=== PATIENT | female | born 1950 | race Caucasian/White ===

== ENCOUNTER → 2018-02-09 | Outpatient (CLI) | payer MEDICARE | END | disposition home or self-care (01) | LOC: CFH 13:37 | PROVIDERS: ATTEND Nurse Practitioner Women's Health | DX: Z12.31 Encounter for screening mammogram for malignant neoplasm of breast (principal) | CPT/HCPCS: 77067 ==

== ENCOUNTER → 2019-02-21 | Outpatient (CLI) | payer MEDICARE | END | disposition home or self-care (01) | LOC: CFH 13:29 | PROVIDERS: ATTEND Nurse Practitioner Women's Health | DX: Z12.31 Encounter for screening mammogram for malignant neoplasm of breast (principal); N64.89 Other specified disorders of breast; Z96.89 Presence of other specified functional implants | CPT/HCPCS: 77067 ==

== ENCOUNTER → 2020-03-28 | Outpatient (CLI) | payer MEDICARE | END | disposition home or self-care (01) | LOC: CFH 12:03 | PROVIDERS: ATTEND Nurse Practitioner Women's Health | DX: Z12.31 Encounter for screening mammogram for malignant neoplasm of breast (principal) | CPT/HCPCS: 77067 ==

== ENCOUNTER 2020-05-11 10:44 | Day surgery (SDC) | payer MEDICARE ==
[~2020-05-11] VITALS: Ht 170.2 cm; Wt 68.2 kg
[2020-05-11] MEDS ORDERED: LIDOCAINE 2%, 20ML SQ PRN (11:00)
[2020-05-11] MEDS ORDERED: LIDOCAINE 2%, 20ML ONE (11:11)
== END 2020-05-11 12:00 | disposition home or self-care (01) ==
LOC: CACL 10:44
PROVIDERS: ATTEND Internal Medicine Cardiovascular Disease
DX: R55 Syncope and collapse (principal); I10 Essential (primary) hypertension; E78.5 Hyperlipidemia, unspecified; I25.10 Atherosclerotic heart disease of native coronary artery without angina pectoris; E78.00 Pure hypercholesterolemia, unspecified; I47.1 Supraventricular tachycardia; Z88.8 Allergy status to other drugs, medicaments and biological substances; Z79.899 Other long term (current) drug therapy
CPT/HCPCS: 33285; C1764

== ENCOUNTER → 2020-05-17 | Outpatient (CLI) | payer MEDICARE | END | disposition home or self-care (01) | LOC: CVU 12:34 | PROVIDERS: ATTEND Internal Medicine Cardiovascular Disease | DX: I65.21 Occlusion and stenosis of right carotid artery (principal); I25.10 Atherosclerotic heart disease of native coronary artery without angina pectoris; R55 Syncope and collapse | CPT/HCPCS: 93306; 93356; 93880 ==

== ENCOUNTER 2020-08-23 11:08 | Observation (INO) | payer MEDICARE ==
[~2020-08-23] VITALS: Ht 170.2 cm; Wt 70.0 kg
[2020-08-23] MEDS ORDERED: CEFAZOLIN PMX 1GM/50ML 50 ML IVPB ONE (12:00)
[2020-08-23] MEDS: SODIUM CHLORIDE 0.9% 1,000 ML IV SCH ×2 (12:00→19:36)
[2020-08-23 12:28] LABS: BASOPHILS % (AUTO) 1 % (0-1); EOSINOPHILS % (AUTO) 1 % (1-7); LYMPHOCYTES % (AUTO) 24 % (22-44); MEAN CORPUSCULAR HEMOGLOBIN 30.7 pg (27.0-34.8); MEAN CORPUSCULAR HGB CONC 33.9 g/dL (32.4-35.8); MEAN PLATELET VOLUME 7.8 fL (7.4-10.4); MONOCYTES % (AUTO) 8 % (2-9); NEUTROPHILS % (AUTO) 68 % (42-75); PLATELET COUNT 235 x10^3/uL (130-400); RED BLOOD COUNT 4.38 x10^6/uL (3.82-5.3); RED CELL DISTRIBUTION WIDTH 13.7 % (9.6-15.2)
[2020-08-23 12:29] VITALS: BP 133/74
[2020-08-23] MEDS ORDERED: LISI-170 PO (12:32)
[2020-08-23] MEDS ORDERED: ATOR40TA PO (12:32)
[2020-08-23] MEDS ORDERED: PROG100C10 PO (12:33)
[2020-08-23] MEDS ORDERED: ALBU18HF INH (12:34)
[2020-08-23] MEDS ORDERED: BIFI4CAP PO (12:35)
[2020-08-23] MEDS ORDERED: LORA-59 PO (12:35)
[2020-08-23 12:38] LABS: ANION GAP 8 mmol/L (5-15); CALCIUM 9.2 mg/dL (8.5-10.1); CHLORIDE 109 mmol/L (98-107)
[2020-08-23 12:40] LABS: CREATININE 0.81 mg/dL (0.55-1.02)
[2020-08-23] MEDS ORDERED: MIDAZOLAM 1 MG/ML, 5ML ONE ×2 (15:32→15:36)
[2020-08-23] MEDS ORDERED: FENTANYL PF 100 MCG/2ML ONE ×2 (15:32→15:36)
[2020-08-23] MEDS ORDERED: CEFAZOLIN PMX 1GM/50ML 0 ML ONE (15:32)
[2020-08-23] MEDS ORDERED: LIDOCAINE 2%, 20ML ONE (15:33)
[2020-08-23] MEDS ORDERED: CEFAZOLIN 1,000 MG ONE ×2 (15:33→15:36)
[2020-08-23] MEDS ORDERED: CEFAZOLIN PMX 1GM/50ML 50 ML ONE (15:36)
[2020-08-23] MEDS ORDERED: LIDOCAINE 1%, 20ML ONE (15:36)
[2020-08-23 17:00] VITALS: BP 149/85
[2020-08-23] MEDS ORDERED: ACETAMINOPHEN 325 MG TABLET PO PRN (17:30)
[2020-08-23] MEDS ORDERED: ONDANSETRON 2MG/ML, 2ML IV PRN (17:30)
[2020-08-23] MEDS ORDERED: HOLD MEDICATION MC PRN (17:30)
[2020-08-23] MEDS ORDERED: HYDROcodone/APAP 5/325 TABLET PO PRN (17:30)
[2020-08-23 19:25] VITALS: BP 118/72
[2020-08-23] MEDS: SODIUM CHLORIDE FLUSH 10ML SYR IVF SCH (20:39)
[2020-08-23] MEDS ORDERED: ZOLPIDEM 5MG TABLET PO PRN (21:00)
[2020-08-24] MEDS: CEFAZOLIN PMX 1GM/50ML 50 ML IVPB SCH ×2 (00:01→06:11)
[2020-08-24 02:00] VITALS: BP 132/77
[2020-08-24] MEDS: SODIUM CHLORIDE 0.9% 1,000 ML IV SCH (02:38)
[2020-08-24 07:22] VITALS: BP 120/73
[2020-08-24] MEDS: SODIUM CHLORIDE FLUSH 10ML SYR IVF SCH (09:00)
[2020-08-24] MEDS ORDERED: ACET325T26 PO (09:23)
[2020-08-24] MEDS ORDERED: POTASSIUM CHLORIDE 20 MEQ TAB.ER.PRT PO SCH (09:30)
== END 2020-08-24 10:30 | disposition home or self-care (01) ==
LOC: CACL 11:08 → 5SO 17:01 → CACL 21:00 → DCLOUNGE 08-24 10:17
PROVIDERS: ADMIT Internal Medicine Cardiovascular Disease; ATTEND Internal Medicine Cardiovascular Disease
DX: I49.5 Sick sinus syndrome (principal); I44.30 Unspecified atrioventricular block; I47.1 Supraventricular tachycardia; I25.10 Atherosclerotic heart disease of native coronary artery without angina pectoris; E78.5 Hyperlipidemia, unspecified; E78.00 Pure hypercholesterolemia, unspecified; I10 Essential (primary) hypertension; Z79.899 Other long term (current) drug therapy; Z79.82 Long term (current) use of aspirin
CPT/HCPCS: 33208; 33286; 36415; 71045; 71046; 80048; 85025; 96365; 96366; 99156; 99157; C1779; C1785; C1892; G0378; J0690; J2250; J3010; J3490

== ENCOUNTER → 2020-08-31 | Outpatient (CLI) | payer MEDICARE ==
[~2020-08-31] MED LIST: ACET325T26 PO; ALBU18HF INH; ATOR40TA PO; BIFI4CAP PO; LISI-170 PO; LORA-59 PO; PROG100C10 PO
== END | disposition home or self-care (01) ==
LOC: CFH 11:37
PROVIDERS: ATTEND Internal Medicine Clinical Cardiac Electrophysiology
DX: E78.00 Pure hypercholesterolemia, unspecified (principal); I10 Essential (primary) hypertension; I25.10 Atherosclerotic heart disease of native coronary artery without angina pectoris; R55 Syncope and collapse; I47.1 Supraventricular tachycardia; I49.5 Sick sinus syndrome; Z95.0 Presence of cardiac pacemaker
CPT/HCPCS: 71046